=== PATIENT | female | born 1945 | race Caucasian/White ===

== ENCOUNTER 2017-09-17 07:39 | Day surgery (SDC) | payer MEDICARE, MEDICAID ==
[2017-09-11 10:36] LABS: BASOPHILS % (AUTO) 0.2 % (0-1); EOSINOPHILS # (AUTO) 0.1 X10'3 (0-0.9); EOSINOPHILS % (AUTO) 1.6 % (0-6); LYMPHOCYTES # (AUTO) 0.7 X10'3 (1.1-4.8); LYMPHOCYTES % (AUTO) 14.5 % (21-51); MEAN CORPUSCULAR HEMOGLOBIN 32.3 PG (27.0-31.0); MEAN CORPUSCULAR HGB CONC 33.8 % (33.0-36.5); MEAN CORPUSCULAR VOLUME 95.5 FL (78-98); MEAN PLATELET VOLUME 6.3 FL (7.4-10.4); MONOCYTES # (AUTO) 0.4 X10'3 (0-0.9); MONOCYTES % (AUTO) 8.1 % (2-12); NEUTROPHILS # (AUTO) 3.5 X10'3 (1.8-7.7); NEUTROPHILS % (AUTO) 75.6 % (42-75); PRE OP HEMATOCRIT 33.9 % (35.0-45.0); PRE OP HEMOGLOBIN 11.5 g/dL (12.0-16.0); PRE OP PLATELET COUNT 281 X10'3 (140-440); RED BLOOD COUNT 3.55 X10'6 (4.20-5.60); RED CELL DISTRIBUTION WIDTH 15.5 % (11.5-14.5)
[2017-09-11 10:47] LABS: PRE OP PROTIME 10.7 SECONDS (9.0-12.0)
[2017-09-11 10:51] LABS: ALBUMIN 2.7 G/DL (3.4-5.0); ALBUMIN/GLOBULIN RATIO 0.7 (1.1-1.5); ALKALINE PHOSPHATASE 116 IU/L (46-116); BLOOD UREA NITROGEN 15 MG/DL (7-18); BUN/CREATININE RATIO 21.4 (6.6-38.0); CALCIUM 9.2 MG/DL (8.5-10.1); CHLORIDE 105 MMOL/L (99-107); PRE OP ALT 14 U/L (30-65); PRE OP ANION GAP 9 (8-16); PRE OP AST 30 U/L (10-37); PRE OP BILIRUB, TOTAL 0.5 MG/DL (0.0-1.0); PRE OP GLUCOSE 75 MG/DL (70-104); PRE OP POTASSIUM 3.8 MMOL/L (3.4-5.1); PRE OP SODIUM 144 MMOL/L (135-145); TOTAL CARBON DIOXIDE 30.3 MMOL/L (24-32); TOTAL PROTEIN 6.7 G/DL (6.4-8.2); eGFR 82 ML/MIN
[2017-09-17] VITALS (10 sets, daily range): BP systolic 117–162; BP diastolic 68–88
[~2017-09-17] VITALS: Ht 162.6 cm; Wt 67.9 kg
[~2017-09-17 07:39] MED LIST: ACET-812 PO; ANTIDIARRHEAL PO; METH35.42 TOP; ceFAZolin inj. 2,000 MG in normal saline 100ml IV soln 100 ML IV ONE; famotidine 20mg tablet PO ONE; ringers solution, lacted 1,000 ML IV SCH
[2017-09-17] MEDS ORDERED: LIDOcaine 1% (10mg/ml) 2ml vial ONE (08:56)
[2017-09-17] MEDS ORDERED: BUPIVAcaine 0.5% inj/PF 30 ml vial ONE (09:22)
[2017-09-17] MEDS ORDERED: dexamethasone sod phosphate 10mg/ml inj ONE (09:37)
[2017-09-17] MEDS ORDERED: sevoflurane 250ml liquid IH ONE (09:37)
[2017-09-17] MEDS ORDERED: fentaNYL/PF 50MCG/1 ML 2ML syringe ONE (09:44)
[2017-09-17] MEDS ORDERED: midazolam 2 mg/2 ml injection ONE (09:54)
[2017-09-17] MEDS ORDERED: propofol inj 20 ML IV ONE (09:59)
[2017-09-17] MEDS ORDERED: ketorolac trometh. 30mg/ml inj. ONE (09:59)
[2017-09-17] MEDS ORDERED: fentaNYL/PF 50MCG/1 ML 2ML syringe IV PRN (10:15)
[2017-09-17] MEDS ORDERED: meperidine/PF 50mg/ml syringe IV PRN ×3 (10:15)
[2017-09-17] MEDS ORDERED: ringers solution, lacted 1,000 ML IV SCH (10:15)
[2017-09-17] MEDS ORDERED: HYDROmorphone inj. 0.5 MG/0.5 ML DISP.SYRIN IV PRN ×2 (10:15)
[2017-09-17] MEDS ORDERED: proCHLORperazine 10 MG/2 ml inj IV PRN (10:15)
[2017-09-17] MEDS ORDERED: ondansetron/PF 4mg/2ml inj IV PRN (10:15)
[2017-09-17] MEDS: fentaNYL/PF 50MCG/1 ML 2ML syringe IV PRN ×2 (11:18→11:28)
[2017-09-17] MEDS ORDERED: HYDROcodone/acetaminophen 10/325mg tab PO ONE (11:25)
== END 2017-09-17 12:37 | disposition home or self-care (01) ==
LOC: PAS 07:39
PROVIDERS: ATTEND Surgery
DX: K64.8 Other hemorrhoids (principal); A06.0 Acute amebic dysentery; J44.9 Chronic obstructive pulmonary disease, unspecified; I10 Essential (primary) hypertension; M19.90 Unspecified osteoarthritis, unspecified site; Z87.891 Personal history of nicotine dependence; Z96.652 Presence of left artificial knee joint; Z98.41 Cataract extraction status, right eye; Z85.3 Personal history of malignant neoplasm of breast; Z98.42 Cataract extraction status, left eye; Z85.72 Personal history of non-Hodgkin lymphomas; Z79.891 Long term (current) use of opiate analgesic; Z91.048 Other nonmedicinal substance allergy status; Z79.01 Long term (current) use of anticoagulants; Z79.899 Other long term (current) drug therapy; Z98.890 Other specified postprocedural states
CPT/HCPCS: 36415; 45330; 46947; 46999; 80053; 85025; 85610; 85730; 93005; A6224; A6402; A6449; J0690; J1100; J1885; J2250; J2704; J3010; J3490; J7030; J7120; 88304; A7000

== ENCOUNTER 2024-09-20 09:24 | Emergency (ER) | payer MEDICARE, MEDICAID ==
[~2024-09-20] VITALS: Ht 167.6 cm; Wt 82.0 kg
[~2024-09-20 09:24] MED LIST changes: -METH35.42 TOP; +[UNRECOGNIZED DRUG - CODE] TOP; -ceFAZolin inj. 2,000 MG in normal saline 100ml IV soln 100 ML IV ONE; -famotidine 20mg tablet PO ONE; -ringers solution, lacted 1,000 ML IV SCH
--- NOTE | 2024-09-20 09:34 | Physician Documentation ---
History of Present Illness ~ Chief Complaint: Mechanical Fall Stated Complaint: FALL Time Seen by MD: 09:29 HPI 79-year-old female who presents to the emergency department by ambulance after having a ground level fall at home. Paramedics report that the patient was on the floor in the had to assist, patient appears to be confused upon arrival to the ER, she has shortened externally rotated left lower extremity with pain to left hip. Tetanus within 5 Years?: Yes Medication Reconciliation Allergies: Uncoded Allergies: TAPE (Allergy, Unknown, 09/11/17) Scheduled Atorvastatin Calcium* (Lipitor*), 1 TAB PO DAILY, (Reported) Meloxicam, Submicronized (Vivlodex), 1 CAP PO DAILY, (Reported) Discontinued Medications Acetaminophen (Tylenol Extra Strength), 2 TABLET PO Q6H PRN for pain, (Reported) Discontinued Reason: patient no longer taking Methyl Salicylate/Menthol (Icy Hot Cream), 1 APPLIC TOP DAILY PRN for pain, (Reported) Discontinued Reason: patient no longer taking [Antidiarrheal], 2 MG PO Q6H PRN for diarrhea, (Reported) Discontinued Reason: patient no longer taking Past Medical History Past Medical History: Vascular Disease Past Surgical History: orthopedic surgeries Alcohol Use: None Drug Use: none Progress Results/Orders Results/Orders Orders - DANIEL DE LA FUENTE DO Ct Head (09/20/24 09:29) Urinalysis (09/20/24 09:29) 15 Lead Ekg (09/20/24 ) Hip Unilateral 2 Views (09/20/24 09:29) Knee Limited (Ap/Lat) (09/20/24 09:38) Ct Pelvis (09/20/24 10:30) Completed Orders - DANIEL DE LA FUENTE DO Ct Head (09/20/24 09:29) Cbc/Diff (09/20/24 09:29) CMP (09/20/24 09:29) 15 Lead Ekg (09/20/24 ) Hip Unilateral 2 Views (09/20/24 09:29) Knee Limited (Ap/Lat) (09/20/24 09:38) Ct Pelvis (09/20/24 10:30) Fentanyl/Pf (Fentanyl 0.05 Mg/Ml Syringe (09/20/24 13:05) Lisinopril Tablet (Zestril Tablet) (09/20/24 14:20) Hydrocodone/Apap 10/325 ([place] 10/325mg (09/20/24 14:35) Medications Received in ER Medications (Trade) Dose Ordered Sig/Jessica Route PRN Reason Start Time Stop Time Status Last Admin Dose Admin (fentaNYL 0.05 MG/ML syringe) 25 mcg ONCE ONCE IV 09/20/24 13:05 09/20/24 13:06 DC 09/20/24 13:21 25 MCG (Zestril tablet) 10 mg ONCE ONCE PO 09/20/24 14:20 09/20/24 14:21 DC 09/20/24 14:33 10 MG ([place] 10/325mg tab) 1 tab ONCE ONCE PO 09/20/24 14:35 09/20/24 14:37 DC 09/20/24 15:18 1 TAB Vital Signs 09/20/24 09/20/24 09/20/24 09/20/24 09:34 09:40 12:46 13:21 Temp 97.6 97.6 Pulse 68 75 Resp 18 18 12 18 B/P (MAP) 171/83 178/94 (122) Pulse Ox 95 98 O2 Flow Rate 0 0 09/20/24 09/20/24 09/20/24 09/20/24 13:45 14:33 14:59 15:18 Pulse 77 80 Resp 18 12 18 B/P (MAP) 158/83 (108) Pulse Ox 97 O2 Flow Rate 0 09/20/24 15:57 Temp 97.6 Pulse 81 Resp 18 B/P (MAP) 157/79 Pulse Ox 97 Laboratory Tests Test 09/20/24 10:41 09/20/24 10:49 White Blood Count 7.8 Red Blood Count 3.87 L Hemoglobin 11.3 L Hematocrit 34.5 L Mean Corpuscular Volume 89.1 Mean Corpuscular Hemoglobin 29.3 Mean Corpuscular Hemoglobin Concent 32.9 L Red Cell Distribution Width 14.1 Platelet Count 136 L Mean Platelet Volume 7.3 L Neutrophils (%) (Auto) 86.8 H Lymphocytes (%) (Auto) 5.6 L Monocytes (%) (Auto) 6.7 Eosinophils (%) (Auto) 0.6 Basophils (%) (Auto) 0.3 Neutrophils # (Auto) 6.7 Lymphocytes # (Auto) 0.4 L Monocytes # (Auto) 0.5 Eosinophils # (Auto) 0.0 Basophils # (Auto) 0.0 CBC Comment Sodium Level 141 Potassium Level 4.2 Chloride Level 106 Carbon Dioxide Level 27.4 Anion Gap 8 Blood Urea Nitrogen 18 Creatinine 0.69 Estimated GFR/1.73 m2 82 BUN/Creatinine Ratio 26.1 H Glucose Level 93 Calcium Level 9.2 Total Bilirubin 0.6 Aspartate Amino Transf (AST/SGOT) 22 Alanine Aminotransferase (ALT/SGPT) 14 Alkaline Phosphatase 109 Total Protein 7.7 Albumin 3.6 Globulin 4.1 Albumin/Globulin Ratio 0.9 L Chemistry Comments EKG/XRAY/CT/US/VASC/MRI EKG : Additional Comment Normal sinus rhythm rate of 65 normal axis normal intervals, normal EKG CT : [facility] [address] [facility], [facility] [id number] CAT SCAN Patient: MARIO DONG Medical Record: [id number] [facility] : 1945, Age: 79 Sex: Female Location: ER Patient Status: REG ER Service Date/Time: 09/20/241029 Ordering Physician: DANIEL DE LA FUENTE DO Exam: CT PELVIS EXAM: CT CT PELVIS INDICATION: left hip pain fx EXAM DATE: 09/20/2024 11:42 AM COMPARISON: None TECHNIQUE: Multiple axial CT images of the pelvis were obtained using bone algorithm. Axial and coronal reformatting was done. Bone and soft tissue windows were reviewed. Radiation Dose Information: CT Dose: CTDI volume is 31.08 mGy. Dose-length product is 990.51 mGy*cm Findings: Lack of intravenous contrast limits evaluation of solid organs and vasculature. Nondisplaced subcapital neck fracture of the left femur. No evidence of dislocation, blastic, lytic, or osseous destructive lesions. No superficial soft tissue abnormalities. The urinary bladder is well-distended and unremarkable. The distal ureters, are within normal limits. Myomatous uterus. No dilatation of the visualized portion of the bowel. No intraluminal free air or free fluid. Impression: 1. Nondisplaced subcapital neck fracture of the left femur. Electronically Signed by:CASSIE RIVAS DO Date & Time: 09/20/241316 Dictated by: CASSIE RIVAS DO Dictation date and time: 09/20/241316 Primary Care Provider: NO PRIMARY CARE PROVIDER cc: DANIEL DE LA FUENTE DO ~ Consults/PCP Consults/PCP : Additional Comment Discussed case with ER physician Izabella Doherty, he will accept the patient in transfer ER to ER for hip fracture. Medical Decision Making Differential Dx:Considerations: Include: Closed head injury, Fracture(s), Abrasion(s), Laceration(s) Departure Disposition: 30 STILL A PATIENT Impression: Primary Impression: Fracture of femur Condition: Stable Referrals: NO PRIMARY CARE PROVIDER (PCP) Comments Patient was transferred to [facility] emergency department Signature Scribe Signature: None Attestation: Dictated by myself DANIEL DE LA FUENTE DO September 20, 2024 09:34
--- NOTE | 2024-09-20 09:41 | ELECTROCARDIOGRAPH REPORT ---
[facility] Test Date: 2024-09-20 Test Time: 09:38:29 Pat Name: MARIO DONG Department: [facility] Patient ID: [id number] Room: Gender: F [employer]: : 1945 Requested By: DANIEL DE LA FUENTE Order Number: [id number] Reading MD: Dr. Bhavani Taylor Measurements Intervals Jarratt Rate: 65 P: 5 SD: 205 QRS: 41 QRSD: 99 T: 24 QT: 409 QTc: 426 Interpretive Statements Sinus rhythm Electronically Signed On 09-20-2024 13:16:[address] Bhavani Taylor Please click the below link to view image of tracing.
--- NOTE | 2024-09-20 10:19 | RADIOLOGY REPORT ---
EXAM: DI KNEE LIMITED (AP/LAT) HISTORY: pain COMPARISON: None TECHNIQUE: AP and lateral views of the left knee were performed. FINDINGS/IMPRESSION: 1. Left total knee arthroplasty without evidence of periprosthetic fracture, loosening, or other comp lication. 2. Probable moderate joint effusion.
--- NOTE | 2024-09-20 10:27 | RADIOLOGY REPORT ---
CLINICAL INDICATION: fx left hip TECHNIQUE: AP view of the bilateral hips and cross-table lateral view of the left hip were performed . DI HIP UNILATERAL 2 VIEWS Comparison: None FINDINGS/IMPRESSION: : Possible mildly impacted left femoral neck fracture. Evaluation is mildly limited on the AP view and severely limited on the cross-table lateral view secondary to patient positioning. Recommend additi onal plain film and/or CT imaging of the left hip for better characterization.
--- NOTE | 2024-09-20 10:33 | RADIOLOGY REPORT ---
CT CT HEAD INDICATION: ALOC EXAM DATE: 09/20/2024 10:12 AM COMPARISON: None RADIATION DOSE: CTDIvol: 60 mGy, DLP: 1100 mGy*cm PROCEDURE: CT scans of the head were obtained from the vertex to the skull base. Sagittal and coronal reconstructions were provided. All CT scans at this medical facility are performed using dose modulation techniques as appropriate t o a performed exam including the following: Automated exposure control was utilized; adjustment of th e MA and/or KV according to patient size; and use of iterative reconstruction technique. FINDINGS: There is sulcal and ventricular prominence. The brainshows normal morphology and leong-whi te matter differentiation, without intracranial hemorrhage, extra-axial fluid collection, mass effect or acute large vessel infarct. The ventricles are normal in size. The basal cisterns are patent. The skull and visible facial bones are intact. The paranasal sinuses, mastoid air cells and middle ear c avities are well-aerated. The soft tissues of the scalp are unremarkable. IMPRESSION: No acute intracranial abnormality.
[2024-09-20 11:07] LABS: BASOPHILS % (AUTO) 0.3 % (0-1); EOSINOPHILS % (AUTO) 0.6 % (0-6); HEMATOCRIT 34.5 % (35.0-45.0); HEMOGLOBIN 11.3 g/dl (12.0-16.0); LYMPHOCYTES # (AUTO) 0.4 X10'3 (1.1-4.8); LYMPHOCYTES % (AUTO) 5.6 % (21-51); MEAN CORPUSCULAR HEMOGLOBIN 29.3 PG (27.0-31.0); MEAN CORPUSCULAR HGB CONC 32.9 g/dL (33.0-36.5); MEAN CORPUSCULAR VOLUME 89.1 FL (78-98); MEAN PLATELET VOLUME 7.3 FL (7.4-10.4); MONOCYTES # (AUTO) 0.5 X10'3 (0-0.9); MONOCYTES % (AUTO) 6.7 % (2-12); NEUTROPHILS # (AUTO) 6.7 X10'3 (1.8-7.7); NEUTROPHILS % (AUTO) 86.8 % (42-75); PLATELET COUNT 136 X10'3 (140-440); RED BLOOD COUNT 3.87 X10'6 (4.20-5.60); RED CELL DISTRIBUTION WIDTH 14.1 % (11.5-14.5); WHITE BLOOD COUNT 7.8 X10'3 (4.5-11.0)
[2024-09-20] MEDS ORDERED: ATOR20TA PO (11:16)
[2024-09-20] MEDS ORDERED: MELO5CAP PO (11:18)
[2024-09-20 11:31] LABS: ALANINE AMINOTRANSFERASE 14 U/L (12-78); ALBUMIN 3.6 G/DL (3.4-5.0); ALBUMIN/GLOBULIN RATIO 0.9 (1.1-1.5); ALKALINE PHOSPHATASE 109 IU/L (46-116); ANION GAP 8 (8-16); ASPARTATE AMINO TRANSFERASE 22 U/L (10-37); BILIRUBIN,TOTAL 0.6 MG/DL (0.1-1.0); BLOOD UREA NITROGEN 18 MG/DL (7-18); BUN/CREATININE RATIO 26.1 (10.0-20.0); CALCIUM 9.2 MG/DL (8.5-10.1); CHLORIDE 106 MMOL/L (99-107); CREATININE 0.69 MG/DL (0.40-0.90); GLUCOSE 93 MG/DL (70-104); SODIUM 141 MMOL/L (135-145); TOTAL CARBON DIOXIDE 27.4 MMOL/L (24-32); TOTAL PROTEIN 7.7 G/DL (6.4-8.2); eCRCL 62 ML/MIN; eGFR 82 ML/MIN
[2024-09-20 11:34] LABS: POTASSIUM 4.2 MMOL/L (3.5-5.1)
--- NOTE | 2024-09-20 13:19 | RADIOLOGY REPORT ---
EXAM: CT CT PELVIS INDICATION: left hip pain fx EXAM DATE: 09/20/2024 11:42 AM COMPARISON: None TECHNIQUE: Multiple axial CT images of the pelvis were obtained using bone algorithm. Axial and coron al reformatting was done. Bone and soft tissue windows were reviewed. Radiation Dose Information: CT Dose: CTDI volume is 31.08 mGy. Dose-length product is 990.51 mGy*cm Findings: Lack of intravenous contrast limits evaluation of solid organs and vasculature. Nondisplaced subcapital neck fracture of the left femur. No evidence of dislocation, blastic, lytic, or osseous destructive lesions. No superficial soft tissu e abnormalities. The urinary bladder is well-distended and unremarkable. The distal ureters, are within normal limits. Myomatous uterus. No dilatation of the visualized portion of the bowel. No intraluminal free air or free fluid. Impression: 1. Nondisplaced subcapital neck fracture of the left femur.
[2024-09-20] MEDS: fentaNYL/PF 50MCG/1 ML 2ML syringe IV ONE (13:21)
[2024-09-20] MEDS: lisinopril 10 MG tablet PO ONE (14:33)
[2024-09-20] MEDS: HYDROcodone/acetaminophen 10/325mg tab PO ONE (15:18)
[2024-09-20 15:57] VITALS: BP 157/79; PULSE 81; RESP 18; TEMP 97.6; O2SAT 97
== END 2024-09-20 15:00 | disposition still patient (30) ==
LOC: ER 09:24
DX: S72.002A Fracture of unspecified part of neck of left femur, initial encounter for closed fracture (principal); W19.XXXA Unspecified fall, initial encounter; Y93.89 Activity, other specified; Y92.89 Other specified places as the place of occurrence of the external cause; Y99.8 Other external cause status
CPT/HCPCS: 36415; 70450; 72192; 73502; 73560; 80053; 85025; 93005; 96374; 99285; J3010